=== PATIENT | female | born 1990 | race Caucasian/White ===

== ENCOUNTER 2017-11-03 09:31 | Inpatient (IN) | payer OTHER ==
[2017-11-03] VITALS (16 sets, daily range): BP systolic 121–146; BP diastolic 67–89; Ht 170.2 cm; Wt 100.7 kg
[~2017-11-03] VITALS: Ht 170.2 cm; Wt 100.7 kg
--- NOTE | ~2017-11-03 | DS ---
PATIENT:MARSHAL STEVE :88 MEDICAL RECORD: [id number] DISCHARGE SUMMARY ADMISSION DATE: 11/03/17 DISCHARGE DATE: 11/04/17 DATE OF ADMISSION: 11/03/2017. DATE OF DISCHARGE: 11/04/2017. ADMISSION DIAGNOSES: 1. spontaneous rupture of membranes. 2. Nonreassuring tracing. 3. 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 DISCHARGE DIAGNOSES: 1. spontaneous rupture of membranes. 2. Nonreassuring tracing. 3. 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 PROCEDURE PERFORMED: Low transverse section. ATTENDING: Riya Germain MD HISTORY OF PRESENT ILLNESS: See the history of present illness in the chart. SUMMARY OF HOSPITALIZATION: The patient was admitted to labor and delivery after gross ROM noted. heart tones were less than 100 and unable to recover. After brief discussion with the patient, it was decided an urgent elective section is to be performed. This infant was delivered and transferred to tertiary center in [place]. The infant's situation is deteriorating rapidly in the patient's discharge at less than 24 hours. The patient is stable with no complaints per nursing. DISCHARGE MEDICATIONS: Include Percocet and Motrin. DISCHARGE INSTRUCTIONS: The patient has been asked to follow up Tuesday for staple removal. Precautions have been given. TRANSINT:[id number] Voice Confirmation ID: [id number] DOCUMENT ID: [id number] RIYA GERMAIN MD at 0912 CC: [id number] DICTATION DATE: 11/04/17 1226 HAND SCREEN PRINTER: 11/05/17 1013 DIS IN 11/04/[id number] [place] [address]
[2017-11-03 10:23] LABS: HEMATOCRIT 40.3 % (36.0-48.0); HEMOGLOBIN 13.6 g/dL (12-16); MCH 29.3 pg (26.0-34.0); MCHC 33.7 g/dL (31.0-37.0); MCV 86.9 fL (80.0-100.0); MEAN PLATELET VOLUME 11.7 fL (7.4-10.4); RBC 4.64 10x6/uL (4.00-5.40); RDW 13.5 % (11.5-14.5)
[2017-11-03] MEDS ORDERED: PRENATAL COMPLE1 TAB PO (14:11)
[2017-11-04 06:02] LABS: BASOPHILS 0.2 % (0-2); HEMATOCRIT 36.2 % (36.0-48.0); HEMOGLOBIN 11.6 g/dL (12-16); IMMATURE GRANULOCYTES 0.3 % (0-5); LYMPHOCYTES 22.9 % (15-50); MCH 28.2 pg (26.0-34.0); MCV 88.1 fL (80.0-100.0); MONOCYTES 7.8 % (2-11); NEUTROPHILS 66.8 % (40-80); RBC 4.11 10x6/uL (4.00-5.40); RDW 13.8 % (11.5-14.5); WBC 11.4 10x3/uL (4.8-10.8)
[2017-11-04 06:08] LABS: PLATELET COUNT 246 10x3/uL (130-400)
[2017-11-04 06:34] VITALS: BP 127/82
[2017-11-04 07:30] LABS: RAPID PLASMA REAGIN Non Reactive (Non Reactive)
[2017-11-04 08:00] VITALS: BP 135/78
[2017-11-04] MEDS ORDERED: IBUPROFEN800 MG PO (10:01)
[2017-11-04] MEDS ORDERED: PERCOCET 7.5/321 TAB PO (10:02)
== END 2017-11-04 10:15 | disposition home or self-care (01) | DRG 766 ==
LOC: D.LDO 09:31 → D.LD 09:40
PROVIDERS: Obstetrics & Gynecology
PROC: 10D00Z1 Extraction of Products of Conception, Low, Open Approach (ICD-10-PCS; principal; 2017-11-03 09:00)
DX: O60.14X0 Preterm labor third trimester with preterm delivery third trimester, not applicable or unspecified (principal); Z3A.32 32 weeks gestation of pregnancy; Z37.0 Single live birth; O99.334 Smoking (tobacco) complicating childbirth; O76 Abnormality in fetal heart rate and rhythm complicating labor and delivery

== ENCOUNTER 2017-12-04 18:16 | Day surgery (SDC) | payer MEDICAID ==
[~2017-12-04] VITALS: Ht 170.2 cm; Wt 91.6 kg
--- NOTE | ~2017-12-04 | HP ---
PATIENT: MARSHAL STEVE MEDICAL RECORD: [id number] ACCOUNT: [id number] LOCATION:D.[id number] : 88 ADMISSION DATE: 12/04/17 HISTORY AND PHYSICAL EXAMINATION ADDENDUM CHIEF COMPLAINT: Pain. HISTORY OF PRESENT ILLNESS: The patient has had 4 bouts of biliary colic. It is right upper quadrant pain that is band like. It radiates around to the back. Nothing aggravates. Nothing alleviates. It is associated with bloating as well as nausea and vomiting. She was noted to have at least [address] scan. I am going to plan for laparoscopic cholecystectomy, intraoperative cholangiography, and possible liver biopsy. The risks, possible complications, and alternatives of the procedure were discussed with the patient. She elects to proceed. The discussion specifically included, but was not limited to, bleeding requiring emergency reoperation, infection, intestinal injury as well as bile duct injury. For the typed portion of the history and physical, please see the chart. This would include the past medical and surgical history, current medications, allergies, social history as well as family history. REVIEW OF SYSTEMS: As described above. No shortness of breath. Positive for chest pain. Positive for shoulder pain. PHYSICAL EXAMINATION: GENERAL: The patient does not appear acutely ill. She does not appear chronically ill. The entire physical examination was performed in the presence of a female nurse. EARS: External ears appear normal. EYES: Extraocular movements are intact. NECK: Trachea is midline. CHEST: No intercostal retractions. PULMONARY: Nonlabored, no stridor. ABDOMEN: Tenderness in the right upper quadrant with a Thomson sign. No Rovsing sign. No peritonitis to percussion. EXTREMITIES: No peripheral cyanosis. INTEGUMENT: No rash, no ulcerations. PSYCHIATRIC: Normal affect. NEUROLOGIC: Nonfocal, no lethargy. The patient answers questions appropriately, moves all extremities well. BACK: No thoracic kyphosis. LYMPHATICS: No lymphangitic streaking of the exposed extremities. IMPRESSION: Biliary colic. PLAN: IV narcotic analgesia. IV antiemetics. Laparoscopic cholecystectomy tomorrow as described above. TRANSINT:[id number] Voice Confirmation ID: [id number] DOCUMENT ID: [id number] HISTORY AND PHYSICAL [id number] MARSHAL STEVE, BRIDGET TRAMMELL at 1019 CC: [id number] DICTATION DATE: 12/05/171953 PIT CREW SUPPORT WORKER: 12/05/17 2241 ADM IN [facility] [address] [id number]
--- NOTE | ~2017-12-04 | OP ---
PATIENT NAME: MARSHAL STEVE MEDICAL RECORD: [id number] :88 LOCATION:D.[id number] ADMISSION DATE:12/04/17 SURGEON: BRIDGET FELIZ MD DATE OF OPERATION: 12/06/2017 PREOPERATIVE DIAGNOSIS: Symptomatic gallstones. POSTOPERATIVE DIAGNOSES: Symptomatic gallstones with hepatomegaly. PROCEDURES: Laparoscopic cholecystectomy, intraoperative cholangiography with 18-gauge core needle liver biopsy. SURGEON: Bridget Feliz MD GLASS CUTTER HELPER: None. BLOOD LOSS: Minimal. ANESTHESIA: General. COMPLICATIONS: None. The risks, possible complications, and alternatives to the procedure were explained to the patient. She elected to proceed. OPERATIVE COURSE: The patient was conveyed to the operating room electively on 12/06/2017. General anesthesia was induced by the anesthesia staff. The abdomen was sterilely prepped and draped. A small skin ludin was accomplished in the left upper quadrant. A Veress needle was inserted through the skin ludin into the peritoneal cavity. CO2 insufflation was begun. Once a sufficient pneumoperitoneum had been achieved, a 5-mm trocar was inserted through an incision in the right upper quadrant. Under direct internal vision utilizing a television camera, a 12-mm trocar was inserted through an incision at the umbilicus. Two more trocars were inserted. A 5-mm trocar was inserted in the epigastrium. Another 5-mm trocar was inserted far laterally in the right upper quadrant. During insertion of the Veress needle and all trocars, there appeared to have been no injury to the bowels, any intraperitoneal or retroperitoneal structures. The indication for the liver biopsy was hepatomegaly. Under laparoscopic guidance, I percutaneously accessed the right upper quadrant utilizing an 18-gauge core needle liver biopsy device. Cores were obtained over the convexity of the liver. The biopsy sites were made hemostatic with electrocautery. I then advanced the cholangiogram trocar. I punctured the fundus of the gallbladder. I aspirated bile. I then injected dye. Static fluoroscopic images were obtained. These cholangiographic images are sent to the radiologist for interpretation. I withdrew the cholangiogram trocar. The gallbladder was grasped and retracted cephalad. The infundibulum was grasped and retracted laterally. Critical view of the triangle of Calot was visualized. Blunt dissection was begun on the triangle of Calot. One cystic artery and one cystic duct were identified. These were clipped multiply and divided between clips. The gallbladder was then excised from its bed and the liver. It was placed OPERATIVE REPORT [id number] MARSHAL STEVE within an Endobag retrieval device and was withdrawn through the umbilical fascia defect. The 12-mm trocars were placed and the abdomen reinsufflated. I irrigated and aspirated in the right upper quadrant. There was no bleeding even at low pressure of 8. The Selwyn-Amy suture closure device and 0 Vicryl sutures were used to close the umbilical fascia. All the trocars were removed and the abdomen desufflated. The incision at the umbilicus was closed with interrupted 4-0 Vicryl Rapide sutures. The other skin incisions were closed with interrupted intracuticular 3-0 Vicryls. Benzoin and Steri-Strips were applied. The patient was then extubated and conveyed to post-anesthesia care unit where she was in stable condition. TRANSINT:[id number] Voice Confirmation ID: [id number] DOCUMENT ID: [id number] BRIDGET FELIZ MD at 1019 CC: [id number] DICTATION DATE: 12/06/171924 BREAKER ENGINEER: 12/06/172028 ADM IN [id number] [place] [address]
[~2017-12-04 18:16] MED LIST: IBUPROFEN800 MG PO; PERCOCET 7.5/321 TAB PO; PRENATAL COMPLE1 TAB PO
[2017-12-04 18:41] LABS: BASOPHILS 0.3 % (0-2); HEMATOCRIT 41.9 % (36.0-48.0); IMMATURE GRANULOCYTES 0.1 % (0-5); LYMPHOCYTES 36.4 % (15-50); MCH 28.7 pg (26.0-34.0); MCHC 33.4 g/dL (31.0-37.0); MCV 85.9 fL (80.0-100.0); MEAN PLATELET VOLUME 10.4 fL (7.4-10.4); MONOCYTES 6.5 % (2-11); NEUTROPHILS 52.7 % (40-80); PLATELET COUNT 285 10x3/uL (130-400); RBC 4.88 10x6/uL (4.00-5.40); RDW 13.1 % (11.5-14.5); WBC 7.7 10x3/uL (4.8-10.8)
[2017-12-04 19:22] LABS: ALBUMIN 3.4 g/dL (3.4-5.0); ALKALINE PHOSPHATASE 94 U/L (46-116); ALT (SGPT) 27 U/L (10-68); AMYLASE - SERUM 46 U/L (25-115); BILIRUBIN - TOTAL 0.22 mg/dL (0.2-1.3); CALC OSMOLALITY 282 mosm/kg (275-300); CALCIUM 9.3 mg/dL (8.5-10.1); CARBON DIOXIDE 21.6 mmol/L (21.0-32.0); CHLORIDE - SERUM 107 mmol/L (98-107); CREATININE - SERUM 0.7 mg/dL (0.6-1.3); GLUCOSE 95 mg/dL (74-106); LIPASE 171 U/L (73-393); POTASSIUM - SERUM 3.8 mmol/L (3.5-5.1); PROTEIN - SERUM 6.8 g/dL (6.4-8.2); SODIUM 142 mmol/L (136-145); UREA NITROGEN 13 mg/dL (7-18); eGFR NON AFRICAN AMERICAN > 90 mL/min (90-120)
[2017-12-04 20:08] LABS: HCG SERUM NEGATIVE (NEGATIVE)
[2017-12-04 21:04] LABS: APPEARANCE HAZY (CLEAR); BILIRUBIN NEGATIVE (NEGATIVE); COLOR YELLOW (YELLOW); GLUCOSE NEGATIVE (NEGATIVE); KETONE NEGATIVE (NEGATIVE); NITRITE NEGATIVE (NEGATIVE); PH 7.5 (5.0-6.0); PROTEIN NEGATIVE (NEGATIVE); UROBILINOGEN NORMAL (NORMAL)
[2017-12-04] MEDS ORDERED: ZOFRAN4 MG PO (23:17)
[2017-12-04] MEDS ORDERED: ULTRAM50 MG PO (23:18)
[2017-12-04 23:25] VITALS: BP 94/42; Ht 170.2 cm; Wt 91.6 kg
[2017-12-05 00:40] VITALS: BP 94/42
[2017-12-05 04:50] VITALS: BP 93/42
[2017-12-05 04:56] LABS: BASOPHILS 0.1 % (0-2); EOSINOPHILS 3.6 % (0-7); HEMATOCRIT 37.6 % (36.0-48.0); HEMOGLOBIN 12.1 g/dL (12-16); IMMATURE GRANULOCYTES 0.1 % (0-5); LYMPHOCYTES 34.6 % (15-50); MCHC 32.2 g/dL (31.0-37.0); MEAN PLATELET VOLUME 10.8 fL (7.4-10.4); MONOCYTES 9.5 % (2-11); NEUTROPHILS 52.1 % (40-80); PLATELET COUNT 274 10x3/uL (130-400); RBC 4.32 10x6/uL (4.00-5.40); WBC 7.8 10x3/uL (4.8-10.8)
[2017-12-05 05:21] LABS: ALBUMIN 2.8 g/dL (3.4-5.0); ALKALINE PHOSPHATASE 95 U/L (46-116); BILIRUBIN - TOTAL 0.47 mg/dL (0.2-1.3); CALCIUM 8.5 mg/dL (8.5-10.1); CARBON DIOXIDE 26.9 mmol/L (21.0-32.0); CHLORIDE - SERUM 108 mmol/L (98-107); CREATININE - SERUM 0.7 mg/dL (0.6-1.3); GLUCOSE 87 mg/dL (74-106); PROTEIN - SERUM 6.1 g/dL (6.4-8.2); SODIUM 140 mmol/L (136-145); eGFR NON AFRICAN AMERICAN > 90 mL/min (90-120)
[2017-12-05 05:23] LABS: ALT (SGPT) 55 U/L (10-68); CALC OSMOLALITY 276 mosm/kg (275-300); POTASSIUM - SERUM 4.4 mmol/L (3.5-5.1); UREA NITROGEN 9 mg/dL (7-18)
[2017-12-05 08:14] VITALS: BP 89/59
[2017-12-05 11:22] VITALS: BP 97/55
[2017-12-05 20:00] VITALS: BP 130/70
[2017-12-06 04:00] VITALS: BP 108/52
[2017-12-06 06:22] LABS: BASOPHILS 0.2 % (0-2); EOSINOPHILS 4.2 % (0-7); HEMATOCRIT 37.8 % (36.0-48.0); HEMOGLOBIN 11.8 g/dL (12-16); IMMATURE GRANULOCYTES 0.2 % (0-5); LYMPHOCYTES 40.9 % (15-50); MCH 27.4 pg (26.0-34.0); MCHC 31.2 g/dL (31.0-37.0); MCV 87.9 fL (80.0-100.0); MEAN PLATELET VOLUME 10.6 fL (7.4-10.4); MONOCYTES 6.9 % (2-11); NEUTROPHILS 47.6 % (40-80); PLATELET COUNT 234 10x3/uL (130-400); RDW 13.2 % (11.5-14.5)
[2017-12-06 06:36] LABS: WBC 5.5 10x3/uL (4.8-10.8)
[2017-12-06 06:43] LABS: ALBUMIN 2.6 g/dL (3.4-5.0); ALKALINE PHOSPHATASE 85 U/L (46-116); BILIRUBIN - TOTAL 0.19 mg/dL (0.2-1.3); CALC OSMOLALITY 277 mosm/kg (275-300); CALCIUM 7.9 mg/dL (8.5-10.1); CARBON DIOXIDE 25.2 mmol/L (21.0-32.0); CHLORIDE - SERUM 109 mmol/L (98-107); CREATININE - SERUM 0.6 mg/dL (0.6-1.3); GLUCOSE 85 mg/dL (74-106); PHOSPHOROUS 3.6 mg/dL (2.5-4.9); PROTEIN - SERUM 5.9 g/dL (6.4-8.2); SODIUM 141 mmol/L (136-145); UREA NITROGEN 8 mg/dL (7-18); eGFR NON AFRICAN AMERICAN > 90 mL/min (90-120)
[2017-12-06 06:52] LABS: ALT (SGPT) 38 U/L (10-68)
[2017-12-06 08:15] VITALS: BP 101/71
[2017-12-06 11:59] VITALS: BP 95/58
[2017-12-06 15:48] VITALS: BP 105/65
[2017-12-06 20:00] VITALS: BP 150/7
[2017-12-07 04:00] VITALS: BP 103/54
[2017-12-07 04:52] LABS: BASOPHILS 0 % (0-2); EOSINOPHILS 0 % (0-7); HEMATOCRIT 39.1 % (36.0-48.0); HEMOGLOBIN 12.9 g/dL (12-16); IMMATURE GRANULOCYTES 0.3 % (0-5); MCH 28.4 pg (26.0-34.0); MCV 86.1 fL (80.0-100.0); MEAN PLATELET VOLUME 10.9 fL (7.4-10.4); MONOCYTES 1.4 % (2-11); NEUTROPHILS 91.3 % (40-80); PLATELET COUNT 265 10x3/uL (130-400); RBC 4.54 10x6/uL (4.00-5.40); RDW 12.8 % (11.5-14.5)
[2017-12-07 04:57] LABS: WBC 11.8 10x3/uL (4.8-10.8)
[2017-12-07 05:17] LABS: ALKALINE PHOSPHATASE 92 U/L (46-116); BILIRUBIN - TOTAL 0.33 mg/dL (0.2-1.3); CALCIUM 8.7 mg/dL (8.5-10.1); CARBON DIOXIDE 22.2 mmol/L (21.0-32.0); CHLORIDE - SERUM 106 mmol/L (98-107); CREATININE - SERUM 0.6 mg/dL (0.6-1.3); MAGNESIUM - SERUM 1.7 mg/dL (1.8-2.4); POTASSIUM - SERUM 3.9 mmol/L (3.5-5.1); PROTEIN - SERUM 6.8 g/dL (6.4-8.2); SODIUM 136 mmol/L (136-145); UREA NITROGEN 7 mg/dL (7-18); eGFR NON AFRICAN AMERICAN > 90 mL/min (90-120)
[2017-12-07 05:18] LABS: ALT (SGPT) 51 U/L (10-68); CALC OSMOLALITY 272 mosm/kg (275-300); GLUCOSE 153 mg/dL (74-106)
[2017-12-07 08:02] VITALS: BP 114/74
== END 2017-12-07 13:04 | disposition home or self-care (01) ==
LOC: D.ER 18:16 → D.MS 22:02 → D.ER 22:02 → D.MS 22:02 → EDSTATUS 12-06 12:00 → D.ER 12-07 13:04 → D.MS 12-07 13:04
PROVIDERS: Family Medicine; Surgery
PROC: 0FB03ZX Excision of Liver, Percutaneous Approach, Diagnostic (ICD-10-PCS; 2017-12-06)
PROC: 0FT44ZZ Resection of Gallbladder, Percutaneous Endoscopic Approach (ICD-10-PCS; principal; 2017-12-06 12:00)
PROC: BF121ZZ Fluoroscopy of Gallbladder using Low Osmolar Contrast (ICD-10-PCS; 2017-12-06 12:00)
DX: K80.70 Calculus of gallbladder and bile duct without cholecystitis without obstruction (principal); R16.0 Hepatomegaly, not elsewhere classified

== ENCOUNTER → 2017-12-15 17:00 | Outpatient (CLI) | payer MEDICAID ==
[2017-12-04 23:25] VITALS: BMI 31.7
[~2017-12-15 17:00] MED LIST changes: +ULTRAM50 MG PO; +ZOFRAN4 MG PO
[2017-12-15 18:55] LABS: BASOPHILS 0.3 % (0-2); EOSINOPHILS 1.7 % (0-7); HEMATOCRIT 42.7 % (36.0-48.0); IMMATURE GRANULOCYTES 0.2 % (0-5); LYMPHOCYTES 26.6 % (15-50); MCH 28.6 pg (26.0-34.0); MCHC 32.8 g/dL (31.0-37.0); MCV 87.1 fL (80.0-100.0); MEAN PLATELET VOLUME 10.5 fL (7.4-10.4); MONOCYTES 9.6 % (2-11); NEUTROPHILS 61.6 % (40-80); PLATELET COUNT 310 10x3/uL (130-400); RDW 13.4 % (11.5-14.5); WBC 9.6 10x3/uL (4.8-10.8)
[2017-12-15 19:09] LABS: ALBUMIN 3.7 g/dL (3.4-5.0); ALKALINE PHOSPHATASE 272 U/L (46-116); ALT (SGPT) 238 U/L (10-68); AMYLASE - SERUM 55 U/L (25-115); BILIRUBIN - TOTAL 0.49 mg/dL (0.2-1.3); CALC OSMOLALITY 275 mosm/kg (275-300); CARBON DIOXIDE 28.6 mmol/L (21.0-32.0); CHLORIDE - SERUM 102 mmol/L (98-107); CREATININE - SERUM 0.6 mg/dL (0.6-1.3); LIPASE 401 U/L (73-393); POTASSIUM - SERUM 3.6 mmol/L (3.5-5.1); PROTEIN - SERUM 7.1 g/dL (6.4-8.2); SODIUM 139 mmol/L (136-145); UREA NITROGEN 11 mg/dL (7-18); eGFR NON AFRICAN AMERICAN > 90 mL/min (90-120)
[2017-12-15 19:17] LABS: GLUCOSE 83 mg/dL (74-106)
== END | disposition home or self-care (01) ==
LOC: D.CT 17:00
PROVIDERS: Surgery
DX: R10.9 Unspecified abdominal pain (principal)

== ENCOUNTER 2018-03-07 22:48 | Emergency (ER) | payer MEDICAID ==
[2017-12-04 23:25] VITALS: BMI 31.7
== END 2018-03-08 00:40 | disposition home or self-care (01) ==
LOC: D.ER 22:48
DX: J02.9 Acute pharyngitis, unspecified (principal)

== ENCOUNTER 2018-05-12 23:21 | Emergency (ER) | payer MEDICAID ==
[~2018-05-12] VITALS: Ht 170.2 cm; Wt 87.3 kg
[2018-05-12 23:35] VITALS: Ht 170.2 cm; Wt 87.3 kg
[2018-05-12] MEDS ORDERED: PROTONIX40 MG (23:36)
[2018-05-13 00:35] LABS: BASOPHILS 0.2 % (0-2); HEMATOCRIT 33.4 % (36.0-48.0); HEMOGLOBIN 11.4 g/dL (12-16); IMMATURE GRANULOCYTES 0.3 % (0-5); LYMPHOCYTES 27.4 % (15-50); MCH 28.4 pg (26.0-34.0); MCHC 34.1 g/dL (31.0-37.0); MCV 83.3 fL (80.0-100.0); MEAN PLATELET VOLUME 11.3 fL (7.4-10.4); MONOCYTES 6.7 % (2-11); NEUTROPHILS 63.4 % (40-80); RBC 4.01 10x6/uL (4.00-5.40); WBC 10.3 10x3/uL (4.8-10.8)
[2018-05-13 00:38] LABS: APPEARANCE CLEAR (CLEAR); BILIRUBIN NEGATIVE (NEGATIVE); COLOR YELLOW (YELLOW); GLUCOSE NEGATIVE (NEGATIVE); KETONE NEGATIVE (NEGATIVE); NITRITE NEGATIVE (NEGATIVE); PROTEIN NEGATIVE (NEGATIVE); UROBILINOGEN NORMAL (NORMAL)
[2018-05-13 00:40] LABS: PLATELET COUNT 247 10x3/uL (130-400)
[2018-05-13 00:53] LABS: ALBUMIN 2.5 g/dL (3.4-5.0); ALKALINE PHOSPHATASE 75 U/L (46-116); ALT (SGPT) 18 U/L (10-68); BILIRUBIN - TOTAL 0.25 mg/dL (0.2-1.3); CALC OSMOLALITY 256 mosm/kg (275-300); CALCIUM 8.5 mg/dL (8.5-10.1); CARBON DIOXIDE 20.8 mmol/L (21.0-32.0); CHLORIDE - SERUM 101 mmol/L (98-107); CREATININE - SERUM 0.5 mg/dL (0.6-1.3); GLUCOSE 90 mg/dL (74-106); PROTEIN - SERUM 6.1 g/dL (6.4-8.2); SODIUM 129 mmol/L (136-145); UREA NITROGEN 7 mg/dL (7-18); eGFR NON AFRICAN AMERICAN > 90 mL/min (90-120)
[2018-05-13 01:09] LABS: HCG - QUANTITATIVE (MATERNAL) 23114 mIU/mL
[2018-05-13 01:11] VITALS: BP 124/69
== END 2018-05-13 01:11 | disposition home or self-care (01) ==
LOC: D.ER 23:21
PROVIDERS: Emergency Medicine
DX: O26.892 Other specified pregnancy related conditions, second trimester (principal); Z3A.18 18 weeks gestation of pregnancy; R10.30 Lower abdominal pain, unspecified; M54.5 Low back pain; F17.200 Nicotine dependence, unspecified, uncomplicated

== ENCOUNTER 2018-05-25 20:46 | Emergency (ER) | payer MEDICAID ==
[~2018-05-25] VITALS: Ht 170.2 cm; Wt 89.1 kg
[~2018-05-25 20:46] MED LIST changes: +PROTONIX40 MG
[2018-05-25 20:58] VITALS: Ht 170.2 cm; Wt 89.1 kg
[2018-05-25 21:33] LABS: HCG URINE POSITIVE (NEGATIVE)
[2018-05-25 21:48] LABS: ALBUMIN 2.8 g/dL (3.4-5.0); ALKALINE PHOSPHATASE 90 U/L (46-116); ALT (SGPT) 11 U/L (10-68); BILIRUBIN - TOTAL 0.26 mg/dL (0.2-1.3); CALC OSMOLALITY 268 mosm/kg (275-300); CALCIUM 8.9 mg/dL (8.5-10.1); CARBON DIOXIDE 25.8 mmol/L (21.0-32.0); CHLORIDE - SERUM 103 mmol/L (98-107); CREATININE - SERUM 0.6 mg/dL (0.6-1.3); GLUCOSE 85 mg/dL (74-106); POTASSIUM - SERUM 3.5 mmol/L (3.5-5.1); PROTEIN - SERUM 7.2 g/dL (6.4-8.2); SODIUM 136 mmol/L (136-145); UREA NITROGEN 7 mg/dL (7-18); eGFR NON AFRICAN AMERICAN > 90 mL/min (90-120)
[2018-05-25 21:50] LABS: APPEARANCE HAZY (CLEAR); BILIRUBIN NEGATIVE (NEGATIVE); COLOR YELLOW (YELLOW); GLUCOSE NEGATIVE (NEGATIVE); KETONE NEGATIVE (NEGATIVE); NITRITE NEGATIVE (NEGATIVE); PROTEIN 1+ mg/dL (NEGATIVE); SPECIFIC GRAVITY 1.015 (1.005-1.020); UROBILINOGEN NORMAL (NORMAL)
[2018-05-25 21:51] LABS: BACTERIA MODERATE /hpf (NONE SEEN); EPITHELIAL CELLS 0-5 /hpf (0-5)
[2018-05-25 22:00] LABS: BASOPHILS 0.1 % (0-2); EOSINOPHILS 1.8 % (0-7); IMMATURE GRANULOCYTES 0.3 % (0-5); LYMPHOCYTES 22.8 % (15-50); MCH 28.8 pg (26.0-34.0); MCHC 34.2 g/dL (31.0-37.0); MCV 84.3 fL (80.0-100.0); MEAN PLATELET VOLUME 11.2 fL (7.4-10.4); MONOCYTES 6.2 % (2-11); NEUTROPHILS 68.8 % (40-80); PLATELET COUNT 298 10x3/uL (130-400); RBC 4.51 10x6/uL (4.00-5.40); RDW 14.4 % (11.5-14.5); WBC 10.5 10x3/uL (4.8-10.8)
[2018-05-25 22:44] LABS: HCG - QUANTITATIVE (MATERNAL) 21814 mIU/mL
[2018-05-26 01:43] VITALS: BP 100/50
== END 2018-05-26 01:50 | disposition other institution (70) ==
LOC: D.ER 20:46
PROVIDERS: Family Medicine
DX: O44.12 Complete placenta previa with hemorrhage, second trimester (principal); Z3A.19 19 weeks gestation of pregnancy; O23.42 Unspecified infection of urinary tract in pregnancy, second trimester; F17.200 Nicotine dependence, unspecified, uncomplicated

== ENCOUNTER 2018-05-26 00:17 | Observation (INO) | payer MEDICAID ==
[2018-05-25 20:58] VITALS: BMI 30.7
== END 2018-05-26 12:55 | disposition home or self-care (01) ==
LOC: OBSVTIME → D.LD 00:17 → OBSVTIME 00:17 → D.LD 00:44 → D.LDO 00:44 → D.LD 12:55 → D.LDO 16:45 → D.LD 16:49 → OBSVTIME 16:49 → D.LD 05-27 18:26 → EDSTATUS 05-30 16:55
DX: O44.12 Complete placenta previa with hemorrhage, second trimester (principal); Z3A.19 19 weeks gestation of pregnancy; O23.42 Unspecified infection of urinary tract in pregnancy, second trimester; F17.200 Nicotine dependence, unspecified, uncomplicated

== ENCOUNTER 2018-09-16 19:56 | Outpatient (CLI) | payer MEDICAID ==
[2018-05-25 20:58] VITALS: BMI 30.7
== END 2018-09-16 20:28 | disposition home or self-care (01) ==
LOC: D.LDO 19:56
DX: O26.893 Other specified pregnancy related conditions, third trimester (principal); Z3A.35 35 weeks gestation of pregnancy